=== PATIENT | male | born 1965 | race African-American/Black ===

== ENCOUNTER 2017-09-19 08:31 | Emergency (ER) | payer OTHER ==
[2017-09-19 08:42] VITALS: RESP 18; TEMP 97.9
--- NOTE | 2017-09-19 09:11 | ED ---
Eye Problem HPI - General Chief complaint: Eye Problems Stated complaint: blurred vision Time Seen by Provider: 09/19/17 08:35 Source: patient, EMS, RN notes reviewed Mode of arrival: EMS Limitations: no limitations - History of Present Illness Initial comments: This is a 51-year-old male presents emergency department via EMS with chief complaint of blurred vision. Patient states that he essentially has no vision to his right eye which has been like that for over 1 year secondary to retinal detachment from diabetes. Patient states that he has had laser therapy on his right and left eye. He states the last 4 days he's had progression of vision loss in his left eye which is new. He states that he can see objects with her very blurry there is no area that he cannot see. He states that he sees spider webs in his eye. He denies any trauma. The patient states that there is no pain associated with his left eye vision loss. Patient states that his blood sugars have been controlled he states his morning blood glucose is 141. Patient denies headache, dizziness. He states that he did not contact his eye doctor because he cannot see his card and he has no transportation to his office. - Related Data Home Medications Medication Instructions Recorded Confirmed No Known Home Medications [No 09/19/17 09/19/17 Known Home Medications] Allergies Allergy/AdvReac Type Severity Reaction Status Date / Time No Known Allergies Allergy Unverified 09/19/17 08:52 Review of Systems ROS Statement: Those systems with pertinent positive or pertinent negative responses have been documented in the HPI. ROS Other: All systems not noted in ROS Statement are negative. Past Medical History Past Medical History: Diabetes Mellitus History of Any Multi-Drug Resistant Organisms: None Reported Past Psychological History: No Psychological Hx Reported Smoking Status: Never smoker Past Alcohol Use History: Occasional Past Drug Use History: None Reported General Exam General appearance: alert, in no apparent distress Head exam: Present: atraumatic, normocephalic, normal inspection Eye exam: Present: normal appearance, PERRL, EOMI. Absent: scleral icterus, conjunctival injection, periorbital swelling Expanded Eyelids: Normal Inspection: Bilateral Pupils: Regular, Round: Bilateral Sclera/Conjunctival: Normal Inspection: Bilateral Anterior chamber: Normal Inspection: Bilateral Posterior chamber: Normal Inspection: Left (appears pale) Visual acuity (R) = 20/: 200 Visual acuity (L) = 20/: 200 IOP (R) in mmH IOP (L) in mmH IOP measured with: [employer] ENT exam: Present: normal exam, normal oropharynx, mucous membranes moist, TM's normal bilaterally, normal external ear exam Neck exam: Present: normal inspection, full ROM. Absent: tenderness, meningismus, lymphadenopathy Respiratory exam: Present: normal lung sounds bilaterally. Absent: respiratory distress, wheezes, rales, rhonchi, stridor Cardiovascular Exam: Present: regular rate, normal rhythm, normal heart sounds. Absent: systolic murmur, diastolic murmur, rubs, gallop, clicks GI/Abdominal exam: Absent: normal bowel sounds Course Vital Signs 09/19/17 09/19/17 08:38 09:40 Temperature 97.9 F Pulse Rate 89 87 Respiratory 18 18 Rate Blood Pressure 175/81 145/79 O2 Sat by Pulse 99 98 Oximetry Medical Decision Making - Medical Decision Making This is a 51-year-old male presents to the emergency department for left eye vision loss. Patient has 20/200 vision normal pressures. Patient has reactive eye. I'm concerned for retinal detachment versus vitreous hemorrhage. I did discuss the case with on-call ophthalmology Dr. Dubois who recommended us to send the patient to his office now for evaluation. He does state that he is in his [place] office. Patient will be sent via taxi to the office and the patient states that he will have family pick him up from [facility] for further transportation. Disposition Clinical Impression: Visual loss Disposition: HOME SELF-CARE Condition: Stable Instructions: Blurred Vision (ED) Additional Instructions: Go directly to Dr. Dubois's office. Is patient prescribed a controlled substance at d/c from ED?: No Referrals: Meño Dubois MD [STAFF PHYSICIAN] - 1-2 days Time of Disposition: 10:15
[2017-09-19 10:26] VITALS: BP 140/81; PULSE 84
== END 2017-09-19 10:26 | disposition home or self-care (01) ==
LOC: EC 08:31
DX: H54.62 Unqualified visual loss, left eye, normal vision right eye (principal)
CPT/HCPCS: 99284